=== PATIENT | female | born 1990 | race African-American/Black ===

== ENCOUNTER 2016-04-25 12:48 | Emergency (ER) | payer OTHER ==
[~2016-04-25 12:48] MED LIST: NAPROSYN500 MG PO
[2016-04-25 12:55] LABS: INFLUENZA A NEG (NEG); INFLUENZA B POS (NEG)
== END 2016-04-25 13:15 | disposition home or self-care (01) ==
LOC: CFTX 12:48
PROVIDERS: Physician Assistant
DX: J10.1 Influenza due to other identified influenza virus with other respiratory manifestations (principal); F17.210 Nicotine dependence, cigarettes, uncomplicated; Z88.2 Allergy status to sulfonamides; Z91.040 Latex allergy status
CPT/HCPCS: 87651; 87804; 99282

== ENCOUNTER 2016-05-08 16:18 | Emergency (ER) | payer OTHER ==
[2016-05-08 15:16] LABS: BASOPHIL# 0.1 X10e3 (0-0.3); BASOPHIL% 0.5 % (0-2.5); EOSINOPHIL# 0.2 X10e3 (0-0.7); EOSINOPHIL% 1.3 % (0.0-7.0); HEMATOCRIT 43.9 % (35.0-45.0); LYMPHOCYTE% 7.9 % (17.0-45.0); MEAN CELL VOLUME 81.1 FL (83-96); MEAN CORPUSCULAR HEMOGLOBIN 25.9 PG (28-34); MEAN CORPUSCULAR HGB CONC 31.9 g/dL (30-36); MEAN PLATELET VOLUME 9.1 FL (6.5-11.5); MONOCYTE# 0.5 X10e3 (0-1.0); MONOCYTE% 4.2 % (3.0-12.0); NEUTROPHIL# 11.2 X10e3 (1.5-7.1); NEUTROPHIL% 86.1 % (40-75); PLATELET COUNT 270 X10e3 (140-420); RED BLOOD COUNT 5.42 X10e (3.90-5.30); RED CELL DISTRIBUTION WIDTH 15.1 % (11.0-15.5)
[2016-05-08 15:25] LABS: DIFF IND NO
[2016-05-08 15:44] LABS: ALBUMIN SERUM 4.3 g/dL (3.5-5.0); ALKALINE PHOSPHATASE 67 U/L (32-92); ALT (SGPT) 20 U/L (10-40); AST (SGOT) 27 U/L (10-42); BILIRUBIN, DIRECT 0.1 mg/dL (0.0-0.2); BILIRUBIN,INDIRECT 0.5 mg/dL (0.0-0.9); BILIRUBIN,TOTAL 0.6 mg/dL (0.2-2.0); BLOOD UREA NITROGEN 8 mg/dL (9-23); BUN/CREATININE RATIO 11.42; CALCIUM SERUM 8.9 mg/dL (8.4-10.2); CARBON DIOXIDE 24 mmol/L (22-31); CHLORIDE 103 mmol/L (100-111); CREATININE SERUM 0.7 mg/dL (0.6-1.4); GLOM FILT RATE Estimated ABOVE60 mL/min (>60); GLUCOSE FASTING 103 mg/dL (70-110); LIPASE 26 U/L (22-51); POTASSIUM 3.9 mmol/L (3.5-5.1); PROTEIN TOTAL SERUM 7.9 g/dL (6.0-8.3); SODIUM 138 mmol/L (135-145)
[2016-05-08 16:50] LABS: URINE SOURCE CLEAN CATCH
[2016-05-08 16:58] LABS: URINE APPEARANCE CLEAR; URINE BILIRUBIN NEG (NEG); URINE BLOOD NEG (NEG); URINE COLOR YELLOW; URINE GLUCOSE NEG (NEG); URINE KETONE NEG (NEG); URINE LEUKOCYTE ESTERASE NEG (NEG); URINE NITRATE NEG (NEG); URINE PH 6.5 (5-8); URINE PROTEIN NEG (NEG); URINE SPECIFIC GRAVITY 1.019 (1.003-1.035); URINE UROBILINOGEN 0.2 MG/DL (NEG)
[2016-05-08 17:03] LABS: CULTURE INDICATED? NO
== END 2016-05-08 17:39 | disposition home or self-care (01) ==
LOC: CED 16:18
DX: R11.10 Vomiting, unspecified (principal); R19.7 Diarrhea, unspecified
CPT/HCPCS: 36415; 80048; 80076; 81003; 83690; 84703; 85025; 99283; 99284

== ENCOUNTER 2016-08-29 19:48 | Emergency (ER) | payer OTHER ==
--- NOTE | ~2016-08-29 | CT4 ---
[facility] A Service of [facility] & [facility] RADIOLOGY TEXT RESULTS PATIENT: AIDE TAN LOCATION: [facility] : [birth year] UNIT #: [id number] AGE: [address]: Anurag Davidson MD SEX: F ORDER DR: [id number] [facility] [address] [place], [place] [address] [id number] E MR#: [id number] Acc #: [id number] NAME: AIDE TAN : 1990 SEX: F STUDY DATE/TIME: 08/29/2016 21:31 UNIT: [facility] ROOM: STUDY DESCRIPTION: CT Abd and Pelv Wo Cont Attending Physician: Anurag Davidson M.D. Referring Physician: Matt Conde Jr., A.P.R.N. Ordering Physician: Anurag Davidson M.D. Primary Care Physician: Matt Conde Jr., A.P.R.N. MEDICAL IMAGING REPORT This report is preliminary unless electronic signature is present EXAM CT scan of the abdomen and pelvis without contrast, 08/29/2016 HISTORY Right flank pain, pain with urination, blood in urine since 08/28/2016. Hypertension. Evaluate for obstructing renal calculus. TECHNIQUE Spiral CT was performed through the abdomen and pelvis without oral or intravenous contrast administration using renal stone protocol. This CT exam was performed with one or more of the following radiation dose reduction techniques: automatic exposure control, adjustment of mA and/or kV according to patient size, and iterative reconstruction. FINDINGS ABDOMEN: There is no obstructing renal or ureteral calculus. There is an indeterminate 1.3-cm low-density lesion within the right kidney which is stable compared with previous CT scan dated 01/14/2016. This finding is indeterminate due to the lack of intravenous contrast. Correlation with renal ultrasound is suggested on a nonemergent basis for possible characterization of this finding. Nonobstructing renal stones are seen bilaterally. The liver, spleen, pancreas, gallbladder and biliary tree and adrenal glands are normal. PELVIS FINDINGS: The gut, mesenteric and abida structures are normal. Trace free fluid is seen in the pelvis. There is a small periumbilical hernia containing only fat. IMPRESSION 1. No obstructing renal or ureteral calculus. 2. Stable indeterminate 1.3 cm low-density lesion on the right kidney [facility] A Service of [facility] RADIOLOGY TEXT RESULTS PATIENT: AIDE TAN LOCATION: [facility] : [birth year] UNIT #: [id number] AGE: [address]: Anurag Davidson MD SEX: F ORDER DR: compared with CT scan dated 01/14/2016. Consider correlation with nonemergent renal ultrasound for characterization of this finding, particularly in light of the patient's history of hematuria. 3. Nonobstructing renal stones bilaterally. 4. Small periumbilical hernia containing only fat. 5. Very small amount of free fluid in the pelvis. Dictated by... Jose Raul Smith M.D. THIS IS AN ELECTRONICALLY VERIFIED REPORT Jose Raul Smith M.D. at 08/30/2016 2:27 PM ALESSANDRA/izabel TD: 08/29/2016 23:17 JOB #: [id number] MEDICAL IMAGING REPORT Page 1 of 1 COPY
[2016-08-29 20:10] LABS: URINE SOURCE CLEAN CATCH
[2016-08-29 20:16] LABS: URINE APPEARANCE CLEAR; URINE BILIRUBIN NEG (NEG); URINE BLOOD 2+ (NEG); URINE COLOR YELLOW; URINE GLUCOSE NEG (NEG); URINE KETONE NEG (NEG); URINE LEUKOCYTE ESTERASE 1+ (NEG); URINE NITRATE NEG (NEG); URINE PROTEIN 1+ (NEG); URINE SPECIFIC GRAVITY 1.024 (1.003-1.035)
[2016-08-29 20:18] LABS: CULTURE INDICATED? YES; URINE BACTERIA AUWI 2+ (NEGATIVE); URINE SQUAMOUS EPITHELIAL CELL NONE SEEN /[HPF]; UWBCS1 AUWI 25-50 (0-5)
== END 2016-08-29 22:55 | disposition home or self-care (01) ==
LOC: CED 19:48
DX: N30.01 Acute cystitis with hematuria (principal); I10 Essential (primary) hypertension; Z88.2 Allergy status to sulfonamides; Z91.040 Latex allergy status
CPT/HCPCS: 74176; 81003; 84703; 87086; 87088; 87186; 99284

== ENCOUNTER → 2016-09-10 | Outpatient (CLI) | payer OTHER ==
--- NOTE | ~2016-09-10 | CR63 ---
[facility] A Service of [facility] & [facility] RADIOLOGY TEXT RESULTS PATIENT: AIDE TAN LOCATION: [facility] : 86 UNIT #: [id number] AGE: [address]: Luis Walters MD SEX: F ORDER DR: [id number] [facility] [address] [place], [place] [address] [id number] O MR#: [id number] Acc #: [id number] NAME: AIDE TAN : 1990 SEX: F STUDY DATE/TIME: 09/10/2016 10:49 UNIT: [facility] ROOM: STUDY DESCRIPTION: CR Chest 2 View Attending Physician: Luis Walters M.D. Referring Physician: Luis Walters M.D. Ordering Physician: Luis Walters M.D. Primary Care Physician: Matt Conde Jr., A.P.R.N. MEDICAL IMAGING REPORT This report is preliminary unless electronic signature is present EXAM Chest 09/10/2016, [facility]. HISTORY 26-year-old woman, preop hand surgery. 10 years smoking history. COMPARISON Chest none. FINDINGS Two-view chest demonstrates borderline cardiac enlargement. Hilar structures and mediastinal contours are preserved. Bilateral lungs are clear. Costophrenic angles are clear. IMPRESSION Borderline cardiac enlargement, otherwise negative chest. No comparison studies. Dictated by... Harsha Turcios M.D. THIS IS AN ELECTRONICALLY VERIFIED REPORT Harsha Turcios M.D. at 09/10/2016 3:08 PM JEANNA/molly TD: 09/10/2016 14:50 JOB #: [id number] MEDICAL IMAGING REPORT Page 1 of 1 COPY
--- NOTE | ~2016-09-10 | EKG ---
PATIENT: AIDE TAN UNIT #: [id number] Ventricular Rate: 53 BPM Atrial Rate: 53 BPM P-R Interval: 164 ms QRS Duration: 82 ms Q-T Interval: 408 ms QTC Calculation(Bezet): 382 ms P [place]: 48 degrees Calculated R [place]: 35 degrees Calculated T [place]: 26 degrees Diagnosis Line: Sinus bradycardia with sinus arrhythmia Diagnosis Line: Otherwise normal ECG Diagnosis Line: No previous ECGs available Diagnosis Line: Confirmed by GLORIA VILLEGAS MD ([id number]) on Diagnosis Line: 09/11/2016 5:04:35 PM INTERPRETING MD: NELLY MORENO
[2016-09-10 11:06] LABS: HEMATOCRIT 38.1 % (35.0-45.0); HEMOGLOBIN 12.9 gm/dL (12.0-16.0); MEAN CELL VOLUME 82.8 FL (83-96); MEAN CORPUSCULAR HGB CONC 33.8 g/dL (30-36); MEAN PLATELET VOLUME 9.2 FL (6.5-11.5); RED BLOOD COUNT 4.59 X10e (3.90-5.30); RED CELL DISTRIBUTION WIDTH 13.8 % (11.0-15.5); WHITE BLOOD COUNT 10.5 X10e3 (4.0-10.5)
[2016-09-10 12:02] LABS: CALCIUM SERUM 8.5 mg/dL (8.4-10.2); CREATININE SERUM 0.8 mg/dL (0.6-1.4); GLOM FILT RATE Estimated 116.4 mL/min (>60); POTASSIUM 3.7 mmol/L (3.5-5.1)
== END | disposition home or self-care (01) ==
LOC: CLAB 10:09
PROVIDERS: Orthopaedic Surgery
DX: Z01.818 Encounter for other preprocedural examination (principal); I51.7 Cardiomegaly; R00.1 Bradycardia, unspecified
CPT/HCPCS: 36415; 71020; 80048; 85027; 93005